=== PATIENT | male | born 1990 | race African-American/Black ===

== ENCOUNTER 2017-03-15 14:51 | Emergency (ER) | payer OTHER, MEDICAID ==
[~2017-03-15] VITALS: Ht 188 cm; Wt 61.2 kg
[~2017-03-15 14:51] MED LIST: ALBUTEROL
[2017-03-15] MEDS ORDERED: IBUPROFEN 600MG TABLET PO ONE (15:45)
[2017-03-15] MEDS ORDERED: AZITHROMYCIN 500 MG TABLET PO ONE (15:45)
[2017-03-15] MEDS ORDERED: CEFTRIAXONE SODIUM 250 MG/VIAL IM ONE (15:45)
[2017-03-15] MEDS ORDERED: LIDOCAINE HCL 1% 20ML VIAL (Pyxis) INJ INFIL ONE (15:45)
[2017-03-15 16:03] LABS: CLARITY URINE CLEAR (CLEAR); COLOR URINE YELLOW (YELLOW); GLUCOSE URINE NEGATIVE (NEGATIVE); KETONES URINE NEGATIVE (NEGATIVE); LEUKOCYTE ESTERASE URINE 1+ (NEGATIVE); NITRITE URINE NEGATIVE (NEGATIVE); OCCULT BLOOD URINE NEGATIVE (NEGATIVE); PH URINE 7.5 (4.5-8.0); PROTEIN URINE NEGATIVE (NEGATIVE)
[2017-03-15 17:30] VITALS: BP 118/72
== END 2017-03-15 17:35 | disposition home or self-care (01) ==
LOC: ER 15:07
DX: M54.5 Low back pain (principal); R30.0 Dysuria
CPT/HCPCS: 81001; 96372; 99283; J0696; J3490

== ENCOUNTER 2017-10-05 16:48 | Emergency (ER) | payer MEDICAID, OTHER ==
[~2017-10-05] VITALS: Ht 172.7 cm; Wt 63.0 kg
[2017-10-05] MEDS ORDERED: NITROGLYCERIN 0.4MG TABLET SL SL PRN (18:15)
[2017-10-05] MEDS ORDERED: ASPIRIN 81MG TABLET PO STA (18:15)
[2017-10-05 18:36] LABS: BASOPHILS % 0.6 % (0.0-2.0); EOSINOPHILS % 1.2 % (0.0-5.0); HEMATOCRIT. 45.7 % (42.0-52.0); HEMOGLOBIN. 15.9 g/dL (14.0-18.0); LYMPHOCYTES % 39.3 % (20.0-50.0); MEAN CORPUSCULAR HEMOGLOBIN 30.2 pg (28.0-32.0); MEAN CORPUSCULAR VOLUME 86.7 fL (80.0-94.0); MEAN PLATELET VOLUME 8.1 fl (7.4-10.4); MONOCYTES % 8.7 % (2.0-8.0); NEUTROPHILS % 50.2 % (40.0-76.0); PLATELET 277 x1000/uL (130-400); RED BLOOD CELL COUNT 5.27 mill/uL (4.7-6.1); RED CELL DISTRIBUTION WIDTH 13.2 % (11.6-14.6)
[2017-10-05 18:43] LABS: CHLORIDE 104 mEq/L (98-107)
[2017-10-05 18:47] LABS: D-DIMER < 0.19 mg/L FEU (<0.50); INR 1.1; PROTHROMBIN TIME 11.7 sec (9.4-11.6)
[2017-10-06 00:40] VITALS: BP 111/56
== END 2017-10-06 00:51 | disposition home or self-care (01) ==
LOC: ER 17:35
DX: R07.89 Other chest pain (principal); E16.2 Hypoglycemia, unspecified; F12.90 Cannabis use, unspecified, uncomplicated; I51.7 Cardiomegaly; J45.909 Unspecified asthma, uncomplicated
CPT/HCPCS: 36415; 71045; 80053; 82962; 84484; 85025; 85379; 85610; 85730; 93005; 99285; Z7610; A4315

== ENCOUNTER 2017-10-22 21:44 | Emergency (ER) | payer MEDICAID ==
[~2017-10-22] VITALS: Ht 185.4 cm; Wt 61.0 kg
[2017-10-23] MEDS ORDERED: DEXAMETHASONE 4MG/ML 1ML VIAL IV ONE (01:30)
[2017-10-23] MEDS ORDERED: KETOROLAC 30MG/ML VIAL IV STA (01:30)
[2017-10-23] MEDS ORDERED: DEXAMETHASONE 10 MG/ML VIAL IV SCH (01:46)
[2017-10-23 05:16] VITALS: BP 128/69
== END 2017-10-23 05:18 | disposition home or self-care (01) ==
LOC: ER 21:44
DX: J02.8 Acute pharyngitis due to other specified organisms (principal)
CPT/HCPCS: 70490; 87070; 87077; 87430; 96374; 96375; 99285; J1100; J1885; Z7610

== ENCOUNTER 2017-11-11 18:11 | Emergency (ER) | payer MEDICAID, MEDICARE ==
[~2017-11-11] VITALS: Ht 188 cm; Wt 61.0 kg
[2017-11-11] MEDS ORDERED: IBUPROFEN 600MG TABLET PO ONE (20:15)
[2017-11-11] MEDS ORDERED: HYDROCODONE/ACETAMINOPHEN 5/325MG TABLET PO ONE (20:15)
[2017-11-11 23:27] VITALS: BP 120/70
== END 2017-11-11 23:40 | disposition home or self-care (01) ==
LOC: ER 18:11
DX: R51 Headache (principal); R53.1 Weakness; J45.909 Unspecified asthma, uncomplicated; F12.10 Cannabis abuse, uncomplicated
CPT/HCPCS: 70450; 99284

== ENCOUNTER 2018-08-31 13:34 | Emergency (ER) | payer MEDICARE, MEDICAID ==
[~2018-08-31] VITALS: Ht 188 cm; Wt 68.0 kg
[2018-08-31] MEDS ORDERED: SODIUM CHLORIDE 0.9% 1,000 ML IV ONE (16:37)
[2018-08-31 17:07] LABS: BASOPHILS % 0.8 % (0.0-2.0); EOSINOPHILS % 0.3 % (0.0-5.0); HEMATOCRIT. 52.1 % (42.0-52.0); HEMOGLOBIN. 17.9 g/dL (14.0-18.0); LYMPHOCYTES % 34.4 % (20.0-50.0); MEAN CORPUSCULAR HEMOGLOBIN 30.5 pg (28.0-32.0); MEAN CORPUSCULAR VOLUME 88.6 fL (80.0-94.0); MEAN PLATELET VOLUME 8.2 fl (7.4-10.4); MONOCYTES % 7.5 % (2.0-8.0); PLATELET 257 x1000/uL (130-400); RED BLOOD CELL COUNT 5.88 mill/uL (4.7-6.1); RED CELL DISTRIBUTION WIDTH 13.4 % (11.6-14.6)
[2018-08-31 17:08] LABS: CHLORIDE 102 mEq/L (98-107)
[2018-08-31 17:10] LABS: INR 1.1; PARTIAL THROMBOPLASTIN TIME 33.1 sec (23.4-31.0); PROTHROMBIN TIME 11.4 sec (9.6-11.0)
[2018-08-31 17:13] LABS: ETHANOL BLOOD < 10 mg/dL
[2018-08-31 18:10] VITALS: BP 120/67
== END 2018-08-31 18:59 | disposition home or self-care (01) ==
LOC: ER 13:34
DX: R00.2 Palpitations (principal); F12.10 Cannabis abuse, uncomplicated; J45.909 Unspecified asthma, uncomplicated
CPT/HCPCS: 36415; 71045; 80053; 80320; 83880; 84443; 84484; 85025; 85610; 85730; 93005; 99284; J7030; G0480

== ENCOUNTER 2018-09-17 11:35 | Emergency (ER) | payer MEDICARE, MEDICAID ==
[~2018-09-17] VITALS: Ht 188 cm; Wt 64.0 kg
[2018-09-17 15:15] LABS: CLARITY URINE CLEAR (CLEAR); COLOR URINE YELLOW (YELLOW); KETONES URINE 3+ (NEGATIVE); LEUKOCYTE ESTERASE URINE NEGATIVE (NEGATIVE); NITRITE URINE NEGATIVE (NEGATIVE); OCCULT BLOOD URINE NEGATIVE (NEGATIVE); PH URINE 5.5 (4.5-8.0); PROTEIN URINE 1+ (NEGATIVE)
[2018-09-17 16:32] LABS: BASOPHILS % 0.3 % (0.0-2.0); EOSINOPHILS % 0.5 % (0.0-5.0); HEMATOCRIT. 49.8 % (42.0-52.0); HEMOGLOBIN. 16.8 g/dL (14.0-18.0); LYMPHOCYTES % 29.2 % (20.0-50.0); MEAN CORPUSCULAR HEMOGLOBIN 29.9 pg (28.0-32.0); MEAN CORPUSCULAR VOLUME 88.5 fL (80.0-94.0); MEAN PLATELET VOLUME 8.1 fl (7.4-10.4); PLATELET 240 x1000/uL (130-400); RED BLOOD CELL COUNT 5.63 mill/uL (4.7-6.1); RED CELL DISTRIBUTION WIDTH 13.5 % (11.6-14.6)
[2018-09-17 16:38] LABS: CHLORIDE 105 mEq/L (98-107)
[2018-09-17 19:05] VITALS: BP 132/75
== END 2018-09-17 19:05 | disposition home or self-care (01) ==
LOC: ER 11:35
DX: K29.70 Gastritis, unspecified, without bleeding (principal); J45.909 Unspecified asthma, uncomplicated; F12.10 Cannabis abuse, uncomplicated; Z79.899 Other long term (current) drug therapy
CPT/HCPCS: 36415; 99283

== ENCOUNTER 2019-05-01 14:51 | Emergency (ER) | payer MEDICARE, MEDICAID ==
[~2019-05-01] VITALS: Ht 185.4 cm; Wt 60.0 kg
[2019-05-01] MEDS ORDERED: IBUPROFEN 600MG TABLET PO STA (15:56)
[2019-05-01 16:39] VITALS: BP 115/73
== END 2019-05-01 16:45 | disposition home or self-care (01) ==
LOC: ER 15:05
DX: S49.82XA Other specified injuries of left shoulder and upper arm, initial encounter (principal); S00.81XA Abrasion of other part of head, initial encounter; S00.83XA Contusion of other part of head, initial encounter; J45.909 Unspecified asthma, uncomplicated; H91.90 Unspecified hearing loss, unspecified ear; M25.512 Pain in left shoulder; Y04.0XXA Assault by unarmed brawl or fight, initial encounter; Y93.9 Activity, unspecified; Y92.9 Unspecified place or not applicable
CPT/HCPCS: 73030; 99283; A4565

== ENCOUNTER 2019-05-05 22:21 | Emergency (ER) | payer MEDICARE, MEDICAID ==
[~2019-05-05] VITALS: Ht 167.6 cm; Wt 61.0 kg
[2019-05-05 23:45] VITALS: BP 142/54
== END 2019-05-06 00:46 | disposition left against medical advice (07) ==
LOC: ER 22:21
DX: Z53.21 Procedure and treatment not carried out due to patient leaving prior to being seen by health care provider (principal); J45.909 Unspecified asthma, uncomplicated